=== PATIENT | female | born 1945 | race Two or more races ===

== ENCOUNTER 2021-01-14 06:45 | Day surgery (SDC) | payer OTHER ==
[~2021-01-14 06:45] MED LIST: CALCIUM PO; SYNTHROID112 MCG PO; VITAMIN D PO
[2021-01-14] MEDS ORDERED: BACTRIM DS TAB1 EACH PO (12:53)
[2021-01-14] MEDS ORDERED: OXYC1TAB9 PO (12:53)
== END 2021-01-14 17:10 | disposition home or self-care (01) ==
LOC: CIR.AMB 06:45
PROVIDERS: ATTEND Orthopaedic Surgery Sports Medicine
DX: S52.531A Colles' fracture of right radius, initial encounter for closed fracture (principal); Z20.822 Contact with and (suspected) exposure to COVID-19
CPT/HCPCS: 25609; C1776